=== PATIENT | female | born 1985 | race Caucasian/White ===

== ENCOUNTER 2016-07-03 11:48 | Emergency (ER) | payer MEDICARE, MEDICAID ==
--- NOTE | 2016-07-03 12:24 | ED.PDOC ---
History of Present Illness - General Chief Complaint: Respiratory Problem Stated Complaint: fever ,cough,ears stopped up Time Seen by Provider: 07/03/16 11:50 Source: patient, RN notes reviewed, Vital Signs reviewed Exam Limitations: no limitations - History of Present Illness Comments: Patient reports 1 week of fever, cough and nasal/sinus congestion. Not improving with conservative treatment. Daughter here with same symptoms. She feels it all started as allergies. Timing/Duration: week Cough Quality/Degree: moderate Possible Cause: allergen exposure, illness exposure Improving Factors: nothing Worsening Factors: nothing Associated Symptoms: cough, fever/chills, headache, nasal congestion Allergies/Adverse Reactions: Allergies Tramadol Allergy (Verified 05/17/16 01:05) Home Medications: Ambulatory Orders ALPRAZolam [Xanax] 0.5 mg PO PRN PRN 02/03/16 Albuterol Inhaler [Ventolin Hfa Inhaler] 1 puff INH PRN PRN 02/03/16 Cefuroxime Axetil [Ceftin] 500 mg PO BID #20 tab 07/03/16 Gabapentin 300 mg PO BID 07/03/16 HYDROcodone 5MG/APAP 325MG [[place] 5/325] 1 tab PO BEDTIME 07/03/16 Review of Systems - Review of Systems Constitutional: States: see HPI, chills, fever, malaise. Denies: diaphoresis, weakness EENTM: States: see HPI, nose congestion. Denies: eye pain, blurred vision, tearing, ear pain, nose pain, throat pain, mouth pain Respiratory: States: see HPI, cough. Denies: orthopnea, short of breath, stridor, wheezing Gastrointestinal/Abdominal: States: no symptoms reported Genitourinary: States: no symptoms reported Musculoskeletal: States: no symptoms reported Skin: States: no symptoms reported Neurological: States: no symptoms reported Endocrine: States: no symptoms reported Past Medical History (General) - Patient Medical History Hx Seizures: No Hx Stroke: No Hx Dementia: No Hx Asthma: Yes Hx of COPD: No Hx Cardiac Disorders: No Hx Congestive Heart Failure: No Hx Pacemaker: No Hx Hypertension: No Hx Thyroid Disease: No Hx Diabetes: No Hx Gastroesophageal Reflux: No Hx Renal Disease: No Hx Cancer: No Hx of HIV: No Hx Hepatitis C: No Hx MRSA: No - Vaccination History Hx Tetanus, Diphtheria Vaccination: No - unknown last date Hx Influenza Vaccination: Yes Hx Pneumococcal Vaccination: No - Social History Hx Tobacco Use: Yes Hx Chewing Tobacco Use: No Hx Alcohol Use: No Hx Substance Use: No Hx Substance Use Treatment: No Hx Depression: No Hx Physical Abuse: No Hx Emotional Abuse: No Hx Suspected Abuse: No - Female History Hx Last Menstrual Period: 11/23/13 Patient : No Family Medical History - Family History Mother Family History: Unknown Living Status: Still Living Hx Family Asthma: No Hx Family Congestive Heart Failure: No Hx Family Hypertension: No Hx Family Stroke: No Hx Cardiac Disease: Yes Hx Family Diabetes: Yes Hx Family Cancer: Yes Physical Exam - Physical Exam General Appearance: Alert, Comfortable, No apparent distress, Well Developed, Well Groomed, Well Hydrated, Well Nourished Eye Exam: bilateral normal ENT Exam: hearing grossly normal, TMs normal, pharynx normal, nasal congestion, nasal drainage, other - Frontal and Maxillary sinus tenderness Neck: non-tender, full range of motion, supple, lymphadenopathy (R), lymphadenopathy (L) Respiratory: lungs clear, normal breath sounds, no respiratory distress, no accessory muscle use Cardiovascular/Chest: regular rate, rhythm, no edema, no gallop, no JVD, no murmur Extremity: normal range of motion, normal inspection Neurologic: no motor/sensory deficits, alert, normal mood/affect, oriented x 3 Skin Exam: normal color, warm/dry Progress - Results/Orders Results/Orders: Influenza A & B are negative Departure - Departure Clinical Impression: Acute sinusitis Time of Disposition: 13:04 Disposition: Discharge to Home or Self Care Condition: Good Instructions: DI for Sinusitis Diet: resume usual diet Activity: increase activity as tolerated Prescriptions: Cefuroxime Axetil [Ceftin] 500 mg PO BID #20 tab Home Medications: Ambulatory Orders ALPRAZolam [Xanax] 0.5 mg PO PRN PRN 02/03/16 Albuterol Inhaler [Ventolin Hfa Inhaler] 1 puff INH PRN PRN 02/03/16 Cefuroxime Axetil [Ceftin] 500 mg PO BID #20 tab 07/03/16 Gabapentin 300 mg PO BID 07/03/16 HYDROcodone 5MG/APAP 325MG [[place] 5/325] 1 tab PO BEDTIME 07/03/16
[2016-07-03 12:25] VITALS: BP 108/69; TEMP 97.6; O2SAT 94
== END 2016-07-03 13:10 | disposition home or self-care (01) ==
LOC: ER 11:48
DX: J01.90 Acute sinusitis, unspecified (principal); J45.909 Unspecified asthma, uncomplicated; Z87.891 Personal history of nicotine dependence

== ENCOUNTER 2017-01-18 06:57 | Emergency (ER) | payer MEDICARE, MEDICAID ==
[2017-01-18 07:14] VITALS: TEMP 98
[2017-01-18] MEDS ORDERED: KETOROLAC TROMETHAMINE INJ 60 MG/2 ML VIAL IM ONE (07:25)
[2017-01-18] MEDS ORDERED: PROMETHAZINE HCL INJ 25 MG/ML VIAL IM ONE (07:26)
[2017-01-18] MEDS ORDERED: ACETAMINOPHEN-CAFF-BUTALBITAL 1 EA TAB PO ONE (08:07)
--- NOTE | 2017-01-18 09:52 | ED.PDOC ---
History of Present Illness - General Chief Complaint: Headache Stated Complaint: migraine Time Seen by Provider: 01/18/17 07:25 Source: patient - History of Present Illness Initial Comments: PT PRESENTS TO THE ED WITH COMPLAINT OF INTERMITTENT MIGRAINE HEADACHE FOR THE PAST 3 DAYS WITH WORSENING AND ASSOCIATED N/V SINCE LAST NIGHT. PT REPORTS THAT TODAYS HEADACHE IS CONSISTENT WITH MIGRAINE HEADACHES SHE HAS HAD IN THE PAST. SHE DENIES ASSOCIATED FEVER, CHILLS, OR NECK PAIN. Quality: severe Recent Head Trauma: chronic headaches Improving Factors: nothing Worsening Factors: other - LIGHT Associated Symptoms: nausea/vomiting Allergies/Adverse Reactions: Allergies Tramadol Allergy (Verified 05/17/16 01:05) Home Medications: Ambulatory Orders Albuterol Inhaler [Ventolin Hfa Inhaler] 1 puff INH PRN PRN 02/03/16 Qinineevyygjb-Tand-Kdrlyjpxdh [Fioricet] 1 - 2 ea PO Q6HR PRN #20 tab 01/18/17 Ibuprofen 800 mg PO Q8HR PRN #30 tab 01/18/17 Promethazine Tab [Phenergan Tablet] 25 mg PO Q6H PRN #15 tab 01/18/17 Review of Systems - Review of Systems Constitutional: Denies: chills, fever EENTM: Denies: eye pain, blurred vision Respiratory: Denies: cough, short of breath Cardiology: Denies: chest pain, palpitations Past Medical History (General) - Patient Medical History Hx Seizures: No Hx Stroke: No Hx Dementia: No Hx Asthma: Yes Hx of COPD: No Hx Cardiac Disorders: No Hx Congestive Heart Failure: No Hx Pacemaker: No Hx Hypertension: No Hx Thyroid Disease: No Hx Diabetes: No Hx Gastroesophageal Reflux: No Hx Renal Disease: No Hx Cancer: No Hx of HIV: No Hx Hepatitis C: No Hx MRSA: No Hx Other - free text: MIGRAINE HEADACHES Surgical History: appendectomy, cholecystectomy - Vaccination History Hx Tetanus, Diphtheria Vaccination: No - unknown last date Hx Influenza Vaccination: Yes Hx Pneumococcal Vaccination: No - Social History Hx Tobacco Use: Yes Hx Chewing Tobacco Use: No Hx Alcohol Use: No Hx Substance Use: No Hx Substance Use Treatment: No Hx Depression: No Hx Physical Abuse: No Hx Emotional Abuse: No Hx Suspected Abuse: No - Female History Patient is a Female of Child Bearing Age (10 -59 yrs old): Yes Hx Last Menstrual Period: 11/23/13 Patient : No Family Medical History - Family History Mother Family History: Unknown Living Status: Still Living Hx Family Asthma: No Hx Family Congestive Heart Failure: No Hx Family Hypertension: No Hx Family Stroke: No Hx Cardiac Disease: Yes Hx Family Diabetes: Yes Hx Family Cancer: Yes Physical Exam - Physical Exam General Appearance: Alert, Obvious distress Eyes, Ears, Nose, Throat Exam: normal ENT inspection Neck: full range of motion, supple, normal inspection Cardiovascular/Chest: regular rate, rhythm, no murmur Respiratory: lungs clear, normal breath sounds Gastrointestinal/Abdominal: non tender, soft Mental Status: alert, oriented x 3 electro tech Exam: normal hearing, normal speech, PERRL Motor/Sensory: no motor deficit, no sensory deficit Skin Exam: warm/dry, normal color Progress - Progress Progress: 01/18/17 07:58 PT REPORTS MODERATE IMPROVEMENT IN SYMPTOMS AFTER IM TORADOL AND PHENERGAN, NOW RATES PAIN AT 6/10 01/18/17 09:59 PT REPORTS COMPLETE RESOLUTION OF HEADACHE AFTER FIORICET X 2 Departure - Departure Clinical Impression: Migraine Time of Disposition: 09:50 Disposition: Discharge to Home or Self Care Condition: Good Departure Forms: ED Discharge - Pt. Copy, Patient Portal Self Enrollment Instructions: DI for Migraine Referrals: ESTHER LINN [Primary Care Provider] - 1-2 Weeks Prescriptions: Huvwgbuimiove-Zthb-Libyeyyulk [Fioricet] 1 - 2 ea PO Q6HR PRN #20 tab PRN Reason: Headache/Migraine Pain Ibuprofen 800 mg PO Q8HR PRN #30 tab PRN Reason: Pain Promethazine Tab [Phenergan Tablet] 25 mg PO Q6H PRN #15 tab PRN Reason: Nausea/Vomiting Home Medications: Ambulatory Orders Albuterol Inhaler [Ventolin Hfa Inhaler] 1 puff INH PRN PRN 02/03/16 Yjxpnntwanwar-Lorn-Cshgmdjfqk [Fioricet] 1 - 2 ea PO Q6HR PRN #20 tab 01/18/17 Ibuprofen 800 mg PO Q8HR PRN #30 tab 01/18/17 Promethazine Tab [Phenergan Tablet] 25 mg PO Q6H PRN #15 tab 01/18/17
[2017-01-18 09:59] VITALS: BP 109/68; O2SAT 100
== END 2017-01-18 09:59 | disposition home or self-care (01) ==
LOC: ER 06:57
DX: G43.909 Migraine, unspecified, not intractable, without status migrainosus (principal); J45.909 Unspecified asthma, uncomplicated; Z87.891 Personal history of nicotine dependence; Z88.6 Allergy status to analgesic agent
CPT/HCPCS: J1885; J2550

== ENCOUNTER 2017-01-30 10:42 | Emergency (ER) | payer MEDICARE, MEDICAID ==
[2017-01-30 11:09] VITALS: BP 141/83; TEMP 97; O2SAT 98
--- NOTE | 2017-01-30 11:32 | ED.PDOC ---
History of Present Illness - General Chief Complaint: Abdominal Pain Stated Complaint: lower abd pain Time Seen by Provider: 01/30/17 11:20 Source: patient Exam Limitations: no limitations Additional Information: PT C/O NAUSEA AND VOMITING. HAS HAD SOME MILD LOWER ABDOMINAL PAIN. SHE IS CONCERNED SHE EITHER HAS A TUBAL OR RETAINED TAMPON - History of Present Illness Timing/Duration: 1 week Severity: moderate Improving Factors: nothing Worsening Factors: other - FOOD Associated Symptoms: nausea/vomiting Allergies/Adverse Reactions: Allergies Tramadol Allergy (Verified 01/30/17 11:06) Home Medications: Ambulatory Orders Albuterol Inhaler [Ventolin Hfa Inhaler] 1 puff INH PRN PRN 02/03/16 Yugfkjcveuhio-Dauk-Tlyajpagai [Fioricet] 1 - 2 ea PO Q6HR PRN #20 tab 01/18/17 Ibuprofen 800 mg PO Q8HR PRN #30 tab 01/18/17 Promethazine Tab [Phenergan Tablet] 25 mg PO Q6H PRN #15 tab 01/18/17 Dicyclomine HCl [Bentyl] 20 mg PO Q6HR PRN #20 tab 01/30/17 Ondansetron [Zofran Odt] 4 mg PO TID PRN #6 tab 01/30/17 Review of Systems - Review of Systems Constitutional: Denies: chills, fever EENTM: States: no symptoms reported Respiratory: Denies: cough, short of breath, wheezing Cardiology: Denies: chest pain, palpitations Gastrointestinal/Abdominal: States: abdominal pain, nausea. Denies: diarrhea Genitourinary: States: other - PT WENT CAMPING AND COULD NOT FIND HER TAMPON BUT HAS CHECKED HERSELF AND CANNOT FEEL IT AND HAD A PERIOD SINCE. Denies: dysuria, frequency, hematuria Musculoskeletal: States: no symptoms reported Skin: States: no symptoms reported Neurological: States: no symptoms reported Endocrine: States: no symptoms reported Past Medical History (General) - Patient Medical History Hx Seizures: No Hx Stroke: No Hx Dementia: No Hx Asthma: Yes Hx of COPD: No Hx Cardiac Disorders: No Hx Congestive Heart Failure: No Hx Pacemaker: No Hx Hypertension: No Hx Thyroid Disease: No Hx Diabetes: No Hx Gastroesophageal Reflux: No Hx Renal Disease: No Hx Cancer: No Hx of HIV: No Hx Hepatitis C: No Hx MRSA: No Hx Other - free text: MIGRAINES - Vaccination History Hx Tetanus, Diphtheria Vaccination: No Hx Influenza Vaccination: No Hx Pneumococcal Vaccination: No Immunizations Up to Date: No - Social History Hx Tobacco Use: Yes Hx Chewing Tobacco Use: No Hx Alcohol Use: Yes Hx Substance Use: No Hx Substance Use Treatment: No Hx Depression: No Feels Threatened In Home Enviroment: No Feels Threatened In a Relationship: No Hx Physical Abuse: No Hx Emotional Abuse: No Hx Suspected Abuse: No - Female History Patient is a Female of Child Bearing Age (10 -59 yrs old): No Hx Last Menstrual Period: 11/23/13 Patient : No Family Medical History - Family History Mother Family History: Unknown Living Status: Still Living Hx Family Asthma: No Hx Family Congestive Heart Failure: No Hx Family Hypertension: No Hx Family Stroke: No Hx Cardiac Disease: Yes Hx Family Diabetes: Yes Hx Family Cancer: Yes Physical Exam - Physical Exam General Appearance: Alert, No apparent distress Eye Exam: bilateral normal Ears, Nose, Throat: hearing grossly normal, normal ENT inspection Neck: non-tender, full range of motion, supple Respiratory: lungs clear, normal breath sounds Cardiovascular/Chest: regular rate, rhythm, no murmur Gastrointestinal/Abdominal: normal bowel sounds, soft, no organomegaly, other - MINIMAL LOWER ABDOMINAL TTP Back Exam: normal inspection, no CVA tenderness Extremity: normal range of motion, non-tender, normal inspection Neurologic: alert, normal mood/affect Skin Exam: normal color, warm/dry Lymphatic: no adenopathy Comments: G/U: NL EXTERNAL, NO VAGINAL FB, NO D/C CX NL Progress - Progress Progress: 01/30/17 12:41 NO VOMITING, ABDOMEN SOFT NTTP. Departure - Departure Clinical Impression: Gastroenteritis Time of Disposition: 12:42 Disposition: Discharge to Home or Self Care Condition: Good Departure Forms: ED Discharge - Pt. Copy, Patient Portal Self Enrollment Instructions: DI for Abdominal Pain-Adult, DI for Viral Gastroenteritis -- Adult Diet: other - CLEAR LIQUIDS FOR 24 HOURS THEN ADVANCE TOLERATED Referrals: ESTHER LINN [Primary Care Provider] - 1-2 Weeks Prescriptions: Dicyclomine HCl [Bentyl] 20 mg PO Q6HR PRN #20 tab PRN Reason: Abdominal Cramping Ondansetron [Zofran Odt] 4 mg PO TID PRN #6 tab PRN Reason: Nausea/Vomiting Home Medications: Ambulatory Orders Albuterol Inhaler [Ventolin Hfa Inhaler] 1 puff INH PRN PRN 02/03/16 Kkimjvuaesjhk-Dupp-Gfrwnbidlz [Fioricet] 1 - 2 ea PO Q6HR PRN #20 tab 01/18/17 Ibuprofen 800 mg PO Q8HR PRN #30 tab 01/18/17 Promethazine Tab [Phenergan Tablet] 25 mg PO Q6H PRN #15 tab 01/18/17 Dicyclomine HCl [Bentyl] 20 mg PO Q6HR PRN #20 tab 01/30/17 Ondansetron [Zofran Odt] 4 mg PO TID PRN #6 tab 01/30/17
[2017-01-30] MEDS ORDERED: PROMETHAZINE HCL INJ 12.5 MG in SODIUM CHLORIDE 0.9% 50ML 50 ML IVPB ONE (11:36)
[2017-01-30] MEDS ORDERED: SODIUM CHLORIDE 0.9% 1000ML 1,000 ML IVS ONE (11:36)
[2017-01-30] MEDS ORDERED: SODIUM CHLORIDE 0.9% 50ML 50 ML ONE (11:53)
[2017-01-30] MEDS ORDERED: PROMETHAZINE HCL INJ 25 MG/ML VIAL ONE (11:53)
== END 2017-01-30 12:53 | disposition home or self-care (01) ==
LOC: ER 10:42
DX: K52.9 Noninfective gastroenteritis and colitis, unspecified (principal); Z88.6 Allergy status to analgesic agent; Z87.891 Personal history of nicotine dependence; J45.909 Unspecified asthma, uncomplicated
CPT/HCPCS: 36415; 80048; 81001; 84703; 85025; A4216; J2550; J7030

== ENCOUNTER 2018-07-04 08:31 | Emergency (ER) | payer MEDICAID, MEDICARE ==
--- NOTE | 2018-07-04 08:59 | ED.PDOC ---
History of Present Illness - General Chief Complaint: Respiratory Problem Stated Complaint: headache, nasal congestion, vomitting Time Seen by Provider: 07/04/18 08:35 Source: patient Exam Limitations: no limitations - History of Present Illness Comments: COUGH, CONGESTION, GENERAL MALAISE. Timing/Duration: this morning Cough Quality/Degree: moderate, productive cough - YELLOW Possible Cause: other - BOTH HER CHILDREN DIAGNOSED WITH INFLUENZA Improving Factors: nothing Worsening Factors: nothing Associated Symptoms: other - GENERAL MALAISE. Allergies/Adverse Reactions: Allergies Tramadol Allergy (Verified 01/30/17 11:06) Home Medications: Ambulatory Orders Albuterol Inhaler [Ventolin Hfa Inhaler] 1 puff INH PRN PRN 02/03/16 Nncdopmjxnvqk-Dpgt-Mmxpecxcdh [Fioricet] 1 - 2 ea PO Q6HR PRN #20 tab 01/18/17 Ibuprofen 800 mg PO Q8HR PRN #30 tab 01/18/17 Promethazine Tab [Phenergan Tablet] 25 mg PO Q6H PRN #15 tab 01/18/17 Dicyclomine HCl [Bentyl] 20 mg PO Q6HR PRN #20 tab 01/30/17 Ondansetron [Zofran Odt] 4 mg PO TID PRN #6 tab 01/30/17 Oseltamivir Capsule [Tamiflu] 75 mg PO BID 5 Days #10 capsule 07/04/18 Review of Systems - Review of Systems Constitutional: States: chills, malaise. Denies: fever EENTM: Denies: ear pain, throat pain Respiratory: States: cough. Denies: short of breath Cardiology: Denies: chest pain, palpitations Gastrointestinal/Abdominal: Denies: abdominal pain, nausea, vomiting Genitourinary: States: no symptoms reported Musculoskeletal: States: no symptoms reported Skin: States: no symptoms reported Neurological: States: no symptoms reported Endocrine: States: no symptoms reported Hematologic/Lymphatic: States: no symptoms reported Past Medical History (General) - Patient Medical History Hx Seizures: No Hx Stroke: No Hx Dementia: No Hx Asthma: Yes Hx of COPD: No Hx Cardiac Disorders: No Hx Congestive Heart Failure: No Hx Pacemaker: No Hx Hypertension: No Hx Thyroid Disease: No Hx Diabetes: No Hx Gastroesophageal Reflux: No Hx Renal Disease: No Hx Cancer: No Hx of HIV: No Hx Hepatitis C: No Hx MRSA: No Surgical History: appendectomy, cholecystectomy - Vaccination History Hx Tetanus, Diphtheria Vaccination: - Unknown Hx Influenza Vaccination: Yes Hx Pneumococcal Vaccination: No Immunizations Up to Date: Yes - Social History Hx Tobacco Use: Yes Hx Chewing Tobacco Use: No Hx Alcohol Use: No Hx Substance Use: No Hx Substance Use Treatment: No Hx Depression: No Hx Physical Abuse: No Hx Emotional Abuse: No Hx Suspected Abuse: No - Female History Patient is a Female of Child Bearing Age (10 -59 yrs old): Yes Hx Last Menstrual Period: 11/23/13 Patient : No Family Medical History - Family History Mother Family History: Unknown Living Status: Still Living Hx Family Asthma: No Hx Family Congestive Heart Failure: No Hx Family Hypertension: No Hx Family Stroke: No Hx Cardiac Disease: Yes Hx Family Diabetes: Yes Hx Family Cancer: Yes Physical Exam - Physical Exam General Appearance: Alert, No apparent distress Eye Exam: bilateral normal ENT Exam: normal ENT inspection, TMs normal, pharynx normal Neck: non-tender, full range of motion, supple, normal inspection Respiratory: lungs clear, normal breath sounds Cardiovascular/Chest: regular rate, rhythm, no murmur Gastrointestinal/Abdominal: normal bowel sounds, non tender, no organomegaly Extremity: normal range of motion, non-tender, normal inspection Neurologic: alert, oriented x 3 Skin Exam: normal color Lymphatic: no adenopathy Progress - EKG/XRAY/CT XRAY: chest - ? BLUNTING OF L COSTOPHRENIC ANGLE BY RADIOLOGY Departure - Departure Clinical Impression: Viral URI ICD-10 Supporting Text: DDX: INFLUENZA Time of Disposition: 09:25 Disposition: Discharge to Home or Self Care Condition: Good Departure Forms: ED Discharge - Pt. Copy, Patient Portal Self Enrollment Instructions: Flu Referrals: ESTHER LINN [Primary Care Provider] - 1-2 Weeks Prescriptions: Oseltamivir Capsule [Tamiflu] 75 mg PO BID 5 Days #10 capsule Home Medications: Ambulatory Orders Albuterol Inhaler [Ventolin Hfa Inhaler] 1 puff INH PRN PRN 02/03/16 Dmtynovdfbvzz-Yupv-Slnyhcbeit [Fioricet] 1 - 2 ea PO Q6HR PRN #20 tab 01/18/17 Ibuprofen 800 mg PO Q8HR PRN #30 tab 01/18/17 Promethazine Tab [Phenergan Tablet] 25 mg PO Q6H PRN #15 tab 01/18/17 Dicyclomine HCl [Bentyl] 20 mg PO Q6HR PRN #20 tab 01/30/17 Ondansetron [Zofran Odt] 4 mg PO TID PRN #6 tab 01/30/17 Oseltamivir Capsule [Tamiflu] 75 mg PO BID 5 Days #10 capsule 07/04/18
--- NOTE | 2018-07-04 09:10 | RAD ---
Procedure: XR CHEST 2 VIEWS Exam Date: 07/04/2018 Ordering Provider: Master Alfred Clinical Indication: COUGH Comparison: None Findings: Cardiomediastinal silhouette is within normal limits. No focal lung consolidation. No pleural effusion. No pneumothorax. No acute osseous abnormality. Impression: 1. No acute abnormality in the chest. Electronically signed by: Ifeanyi Leal MD 07/04/2018 9:08 AM SPECIMEN ACCESSIONER
[2018-07-04 09:45] VITALS: BP 111/68; TEMP 99.7; O2SAT 95
== END 2018-07-04 09:38 | disposition home or self-care (01) ==
LOC: ER 08:31
DX: J06.9 Acute upper respiratory infection, unspecified (principal); J45.909 Unspecified asthma, uncomplicated; Z87.891 Personal history of nicotine dependence; Z88.8 Allergy status to other drugs, medicaments and biological substances

== ENCOUNTER 2018-08-13 19:59 | Emergency (ER) | payer SELFPAY ==
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
[2018-08-13] MEDS ORDERED: KETOROLAC TROMETHAMINE INJ 60 MG/2 ML VIAL IM ONE (20:17)
[2018-08-13 20:32] VITALS: TEMP 98.8; O2SAT 99
[2018-08-13 21:08] VITALS: BP 127/89
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
== END 2018-08-13 21:08 | disposition home or self-care (01) ==
LOC: ER 19:59
DX: S30.0XXA Contusion of lower back and pelvis, initial encounter (principal); S40.022A Contusion of left upper arm, initial encounter; J45.909 Unspecified asthma, uncomplicated; Z87.891 Personal history of nicotine dependence; Z88.5 Allergy status to narcotic agent; V49.49XA Driver injured in collision with other motor vehicles in traffic accident, initial encounter; Y92.410 Unspecified street and highway as the place of occurrence of the external cause
CPT/HCPCS: 72100; 73060; J1885

== ENCOUNTER 2019-12-12 10:34 | Emergency (ER) | payer MEDICAID, MEDICARE ==
--- NOTE | 2019-12-12 11:00 | ED.PDOC ---
History of Present Illness - General Time Seen by Provider: 12/12/19 10:42 Source: patient, RN notes reviewed, Vital Signs reviewed Exam Limitations: no limitations - History of Present Illness Initial Comments: Patient is a 34-year-old female who presents to ED for 5-day history of body aches, nonproductive cough, nausea, vomiting and feeling fatigued. She works at [employer]. States she was seen in the [place] ED 3 days ago and diagnosed with viral upper respiratory syndrome and started on a nausea medication at home. Her vomiting has improved, but continues to have fatigue body aches and cough. She denies shortness of breath, but states that her chest does feel tight. Denies fever, headache, neck stiffness or diarrhea. Allergies/Adverse Reactions: Allergies Tramadol Allergy (Verified 12/12/19 11:05) Home Medications: Ambulatory Orders Cyclobenzaprine HCl [Flexeril] 10 mg PO TID PRN #15 tab 08/13/18 Indomethacin 50 mg PO TID PRN #14 cap 08/13/18 Acetaminophen [Tylenol] 650 mg PO Q6H PRN #30 tab 12/12/19 Review of Systems - Review of Systems Constitutional: States: malaise. Denies: chills, fever, weakness EENTM: Denies: blurred vision, ear pain, nose congestion, throat pain Respiratory: States: cough. Denies: short of breath Cardiology: States: chest pain. Denies: edema, palpitations, syncope Gastrointestinal/Abdominal: States: diarrhea, nausea, vomiting. Denies: abdominal pain Genitourinary: Denies: dysuria, frequency, hematuria Musculoskeletal: Denies: back pain, neck pain Skin: States: no symptoms reported Neurological: Denies: headache, paresthesia Hematologic/Lymphatic: States: no symptoms reported All other Systems: Reviewed and Negative Past Medical History (General) - Patient Medical History Hx Seizures: No Hx Stroke: No Hx Dementia: No Hx Asthma: Yes Hx of COPD: No Hx Cardiac Disorders: No Hx Congestive Heart Failure: No Hx Pacemaker: No Hx Hypertension: No Hx Thyroid Disease: No Hx Diabetes: No Hx Gastroesophageal Reflux: No Hx Renal Disease: No Hx Cancer: No Hx of HIV: No Hx Hepatitis C: No Hx MRSA: No - Vaccination History Hx Tetanus, Diphtheria Vaccination: - Unknown Hx Influenza Vaccination: Yes Hx Pneumococcal Vaccination: No - Social History Hx Tobacco Use: Yes Hx Chewing Tobacco Use: No Hx Alcohol Use: No Hx Substance Use: No Hx Substance Use Treatment: No Hx Depression: No Hx Physical Abuse: No Hx Emotional Abuse: No Hx Suspected Abuse: No - Female History Hx Last Menstrual Period: 11/23/13 Patient : No Family Medical History - Family History Mother Family History: Unknown Living Status: Still Living Hx Family Asthma: No Hx Family Congestive Heart Failure: No Hx Family Hypertension: No Hx Family Stroke: No Hx Cardiac Disease: Yes Hx Family Diabetes: Yes Hx Family Cancer: Yes Physical Exam - Physical Exam General Appearance: Alert, Comfortable, No apparent distress Neck: non-tender, full range of motion, supple Respiratory: chest non-tender, lungs clear, normal breath sounds, no respiratory distress, no accessory muscle use Cardiovascular/Chest: regular rate, rhythm, no murmur Gastrointestinal/Abdominal: non tender, soft, no pulsatile mass Back Exam: no CVA tenderness, no vertebral tenderness Extremity: normal range of motion, non-tender, normal inspection, no pedal edema Neurologic: no motor/sensory deficits, alert, normal mood/affect, oriented x 3 Skin Exam: normal color, warm/dry Progress - Progress Progress: 12/12/19 11:03 Patient presents with 5-day history of cough, body aches, nausea and vomiting and feeling fatigued. She does have risk factors for COVID-19 as she works at [employer]. Will get labs, COVID swab and chest x-ray and monitor in ED. 12/12/19 13:58 Discussed with patient lab and imaging results. Chest x-ray and blood work and urine are unremarkable, but COVID-19 swab is positive. She has no respiratory distress or hypoxia. Not requiring supplemental oxygen at this time. I have discussed self quarantine for 2 weeks and for her to return if she develops difficulty breathing or any worsening of her symptoms. Will take Tylenol as needed for pain and fever and avoid NSAIDs. Strict return precautions given. - Results/Orders Results/Orders: EKG- NSR, rate 90, nml intervals, nonspecific ST abnormality CHEST XRAY Study: Single Frontal Radiograph of the Chest. Indication:cough Comparison: July 04, 2018 Impression: Heart size normal. Lungs clear. No acute osseous abnormality. COVID 19 POSITIVE Laboratory Results - last 24 hr 12/12/19 12/12/19 12/12/19 11:15 11:15 11:15 WBC 6.1 RBC 4.87 Hgb 14.7 Hct 41.9 MCV 86.0 MCH 30.1 MCHC 35.0 RDW 12.5 Plt Count 226 MPV 8.7 Absolute Neuts (auto) 3.50 Absolute Lymphs (auto) 1.70 Absolute Monos (auto) 0.70 Absolute Eos (auto) 0.10 Absolute Basos (auto) 0.10 Neutrophils % 57.6 Lymphocytes % 28.2 Monocytes % 11.2 H Eosinophils % 2.1 Basophils % 0.9 Sodium 136 Potassium 3.5 L Chloride 108 Carbon Dioxide 20 L Anion Gap 11.5 L BUN 8 Creatinine 0.53 L BUN/Creatinine Ratio 15.1 Random Glucose 93 Serum Osmolality 270.0 L Calcium 9.0 Troponin I < 0.02 Serum HCG, Qual Beta HCG, Quant Cancelled Urine Color Urine Appearance Urine pH Ur Specific [place] Urine Protein Urine Glucose (UA) Urine Ketones Urine Blood Urine Nitrite Urine Bilirubin Urine Urobilinogen Ur Leukocyte Esterase Urine RBC Urine WBC Ur Epithelial Cells Amorphous Sediment Urine Bacteria Urine Mucus 12/12/19 12/12/19 11:15 13:23 WBC RBC Hgb Hct MCV MCH MCHC RDW Plt Count MPV Absolute Neuts (auto) Absolute Lymphs (auto) Absolute Monos (auto) Absolute Eos (auto) Absolute Basos (auto) Neutrophils % Lymphocytes % Monocytes % Eosinophils % Basophils % Sodium Potassium Chloride Carbon Dioxide Anion Gap BUN Creatinine BUN/Creatinine Ratio Random Glucose Serum Osmolality Calcium Troponin I Serum HCG, Qual Negative Beta HCG, Quant Urine Color Yellow Urine Appearance Clear Urine pH 6.0 Ur Specific [place] 1.020 Urine Protein Negative Urine Glucose (UA) Negative Urine Ketones 15 H Urine Blood Negative Urine Nitrite Negative Urine Bilirubin Negative Urine Urobilinogen 0.2 Ur Leukocyte Esterase Negative Urine RBC 0-1 Urine WBC 0-1 Ur Epithelial Cells 0-1 Amorphous Sediment 2+ Urine Bacteria 0 Urine Mucus Large Departure - Departure Clinical Impression: COVID-19, Viral syndrome Time of Disposition: 14:01 Disposition: Discharge to Home or Self Care Condition: Good Instructions: Coronavirus Disease 2019 (COVID-19), Viral Syndrome (DC) Diet: resume usual diet Activity: increase activity as tolerated Referrals: ESTHER LINN [Primary Care Provider] - 1-2 Days Prescriptions: Acetaminophen [Tylenol] 650 mg PO Q6H PRN #30 tab PRN Reason: Fever Home Medications: Ambulatory Orders Cyclobenzaprine HCl [Flexeril] 10 mg PO TID PRN #15 tab 08/13/18 Indomethacin 50 mg PO TID PRN #14 cap 08/13/18 Acetaminophen [Tylenol] 650 mg PO Q6H PRN #30 tab 12/12/19 Additional Instructions: You will need to self quarantine for 2 weeks as you tested positive for [place] Virus
[2019-12-12] MEDS ORDERED: SODIUM CHLORIDE 0.9% 1000ML 1,000 ML IVS ONE (11:04)
[2019-12-12] MEDS ORDERED: KETOROLAC TROMETHAMINE INJ 30 MG/ML VIAL IV ONE (11:04)
[2019-12-12] MEDS ORDERED: ONDANSETRON INJ 4 MG/2 ML VIAL IV ONE (11:04)
--- NOTE | 2019-12-12 11:33 | RAD ---
Study: Single Frontal Radiograph of the Chest. Indication:cough Comparison: July 04, 2018 Impression: Heart size normal. Lungs clear. No acute osseous abnormality. Electronically signed by: Roman Escobar MD 12/12/2019 11:31 AM CDT
[2019-12-12 14:53] VITALS: BP 114/68; TEMP 98.8; O2SAT 98
== END 2019-12-12 14:10 | disposition home or self-care (01) ==
LOC: ER 10:34
DX: U07.1 COVID-19 (principal); J45.909 Unspecified asthma, uncomplicated; Z87.891 Personal history of nicotine dependence; Z88.5 Allergy status to narcotic agent
CPT/HCPCS: 71045; 80048; 81001; 84484; 84703; 85025; 87635; 93005; J1885; J2405; J7030